=== PATIENT | female | born 1940 | race Caucasian/White ===

== ENCOUNTER → 2024-01-11 15:06 | Outpatient (REF) | payer OTHER, SELFPAY | LOC: WDC 15:06 | PROVIDERS: ATTENDING PHYSICIAN Registered Nurse | DX: Z12.31 Encounter for screening mammogram for malignant neoplasm of breast (principal) | CPT/HCPCS: 77063; 77067 ==

== ENCOUNTER → 2024-06-29 09:43 | Outpatient (REF) | payer OTHER, SELFPAY | LOC: WDC 09:43 | PROVIDERS: ATTENDING PHYSICIAN Registered Nurse | DX: N64.4 Mastodynia (principal) | CPT/HCPCS: 76642; 77061; 77065 ==

== ENCOUNTER 2024-08-20 13:48 | Emergency (ER) | payer OTHER, SELFPAY ==
[2024-08-20 13:54] VITALS: BP 182/103
--- NOTE | 2024-08-20 15:00 | ED.SKININJ ---
HPI-Injury
General
Chief Complaint: Skin Problem
Source: patient and family (daughter at bedside)
Exam Limitations: none
Time Seen by Provider: 08/20/24 14:03
Nursing documentation reviewed up to this point in time: agreed with
History of Present Illness-Injury
Initial Injury comments:
83 yo female from [place] presents with daughter stating a week ago pt had scattered 6 mm flat red spots over both arms. These subsided and 4 days ago red areas started to appear bilateral antecubital areas and anterior neck and lower half of face.
Pt states mildly itchy, not painful.
Daughter states pt's knees were itching badly last p.m. but today no symptoms.
Has a remote history of eczema and has seen Dr. Marie in past.
Denies fever/chills, feels well otherwise.
Past History
Past History
ED Past Medical History: HTN and NIDDM
ED Past Surgical History: Gynecological and Orthopedic
Social History
Tobacco: Non-smoker
Alcohol: None
Drug: None
Personal:
Living: skilled nursing
Employment: Retired
Family History
Family History: Hypertension
Review of Systems
Review of Systems
Allergies reviewed?: Yes
All Other Systems: ROS reviewed and negative except as documented in HPI and ROS
Constitutional: Denies fever, fatigue or chills
Respiratory: Denies trouble breathing
Cardiac: Denies chest pain
ABD/GI: Denies abdominal pain, nausea, vomiting, diarrhea, constipated or anorexia
: Denies dysuria or difficulty voiding
Musculoskeletal: Reports no symptoms
Skin: Reports itching and rash
Neurological: Reports no symptoms
Phy Exam
Physical Exam
Physical Exam:
GENERAL: No acute distress. A&Ox3.
CONSTITUTIONAL: Afebrile.
EYES: clear, conjunctivae normal
ENMT: moist mucus membranes, Pharynx nl
RESPIRATORY: Regular respirations, nonlabored, lungs clear.
CARDIOVASCULAR: Regular rate and rhythm, no murmurs, no rubs.
GI: Soft, nontender
MUSCULOSKELETAL: Moves with ease. Well perfused.
SKIN: Warm, dry, pink. Dry, thick, scaly, reddened skin bilateral antecubital areas, chin and lower cheeks. Mild redness anterior neck. The rest of the body is spared, no lesions/rash.
PSYCH: Normal mood and affect. Well kept, interactive and appropriate
NEUROLOGIC: Awake, alert and oriented. No focal neurological deficits
Course
Vital Signs
Initial and Last Documented VS:
Initial Vital Signs
Temp Pulse Resp BP Pulse Ox
98 F 82 18 182/103 98
08/20/24 13:54 08/20/24 13:54 08/20/24 13:54 08/20/24 13:54 08/20/24 13:54
Last Documented Vital Signs
Temp Pulse Resp BP Pulse Ox
98 F 77 18 155/97 95
08/20/24 13:54 08/20/24 15:05 08/20/24 15:05 08/20/24 15:05 08/20/24 15:05
MDM/Problems Addressed
Differential Diagnosis Includes:
eczema, psoriasis, lichen planus, contact dermatitis, cellulitis
MDM/Problems Addressed:
83 yo female from [place] presents with daughter stating a week ago pt had scattered 6 mm flat red spots over both arms. These subsided and 4 days ago red areas started to appear bilateral antecubital areas and anterior neck and lower half of face.
Pt states mildly itchy, not painful.
Daughter states pt's knees were itching badly last p.m. but today no symptoms.
Has a remote history of eczema and has seen Dr. Marie in past.
Denies fever/chills, feels well otherwise.
Afebrile, well appearing, joking, pleasant
No systemic signs of infection
Exam consistent with eczema. Areas are bright red on arms, darker red on face.
Will cover for early cellulitis with Keflex
Rx for steroid taper and Keflex given to her daughter
They will f/u with Dr. Marie
*Critical Care Note
Total Time (30-74mins, 75-104mins- exclusive of procedures): Not Applicable
ED Attending Note
-
Portions of this chart may have been created with voice recognition software.� Occasional wrong word or��sound alike� substitutions may have occurred due to the inherent limitations of voice recognition software.
Discharge Plan
Departure
Patient Disposition: Home (Routine Discharge)
Date of Disposition: 08/20/24
Time of Disposition: 15:00
Patient with high blood pressure during this ER visit?: No
Condition: Good
Discharge Problem:
Eczema of both upper extremities, Acute eczema, Eczema of face
Instructions: Eczema (atopic dermatitis)
Prescriptions:
New
prednisone 10 mg Tablet
See Rx Instructions .ROUTE .COMPLEX Qty: 30 0RF
Rx Instructions:
Take By Mouth:
40 mg daily x3 days, 30 mg daily x3 days,
20 mg daily x3 days, 10 mg daily x3 days.
cephalexin 500 mg capsule
500 mg PO QID 7 Days Qty: 28 0RF
No Action
atorvastatin 40 MG tablet
40 mg PO DAILY
metformin 500 MG tablet
500 mg PO .DAILY@1800
levothyroxine 75 MCG tablet
75 mcg PO DAILY
metoprolol succinate 50 MG tablet extended release 24 hr
50 mg PO DAILY
lisinopril 10 MG tablet
10 mg PO DAILY
cholecalciferol (vitamin D3) [Vitamin D3] 1,000 UNIT capsule
1,000 unit PO DAILY
acetaminophen 325 MG tablet
650 mg PO Q4HPRN PRN (Reason: pain) Qty: 0 0RF
aspirin 325 MG tablet,delayed release (DR/EC)
325 mg PO DAILY Qty: 0 0RF
Referrals:
Alisia Marie MD [Consulting Staff] - Next open appointment
Activity Restrictions/Additional Instructions:
As we discussed, this looks most like eczema.
Take the Prednisone and Keflex as orderd.
Call Dr. Marie and make next available appointement
Interventions
Interventions:
*Risk Screen - Suicide Last Done: 08/20/24 13:54
*General Assessment Last Done: 08/20/24 13:54
*Neglect/Abuse Screening Last Done: 08/20/24 13:54
ED- Fall Risk Assessment Last Done: 08/20/24 15:11
*ED COVID-19 Vaccine History Last Done: 08/20/24 15:11
*Nursing Disposition Last Done: 08/20/24 15:11
ED-Skin Assessment Last Done: 08/20/24 15:05
Discharge Date and Time
Discharge Date/Time: 08/20/24 15:19
Print Language: FAROESE
[2024-08-20 15:05] VITALS: BP 155/97
== END 2024-08-20 15:19 | disposition home or self-care (01) ==
LOC: EMR 13:48
PROVIDERS: EMERGENCY PHYSICIAN Student in an Organized Health Care Education/Training Program; FAMILY PHYSICIAN Registered Nurse
DX: L30.9 Dermatitis, unspecified (principal); I10 Essential (primary) hypertension; E11.9 Type 2 diabetes mellitus without complications
CPT/HCPCS: 99282

== ENCOUNTER 2024-08-26 07:35 | Emergency (ER) | payer OTHER, SELFPAY ==
[2024-08-26 07:38] VITALS: BP 202/85
--- NOTE | 2024-08-26 07:39 | ED.GENMED ---
History of Present Illness
General
Chief Complaint: Fall
Source: patient
Exam Limitations: none
Time Seen by Provider: 08/26/24 07:39
Nursing documentation reviewed up to this point in time: agreed with
History of Present Illness
History of Present Illness:
83 yr old female presents via EMS fro [facility] for evaluation of fall. Patient was found on the floor outside of her room. Pt was found sitting in the sofa when EMS arrived.
Pt is at baseline as per residential staff.
PT presents in a collar awake alert no acute distress mildly confused which is baseline for patient. Patient is not on blood thinners. Patient has no complaints.
Past History
Past History
ED Past Medical History: HTN and NIDDM
ED Past Surgical History: Gynecological and Orthopedic
Social History
Tobacco: Non-smoker
Alcohol: None
Drug: None
Personal:
Living: residential
Employment: Retired
Family History
Family History: Hypertension
Review of Systems
Review of Systems
Allergies reviewed?: Yes
Unable to obtain full review of systems at this time due to: dementia
Other source history: family and residential
All Other Systems: ROS reviewed and negative except as documented in HPI and ROS
Constitutional: Reports no symptoms
Respiratory: Reports no symptoms
ABD/GI: Reports no symptoms
Musculoskeletal: Reports no symptoms
Skin: Reports no symptoms
Neurological: Reports no symptoms
Psychiatric: Reports no symptoms
Phy Exam
General Physical Exam
General Presentation: no apparent distress
General age: appears stated age
General Skin: warm and dry
General Habitus: elderly
General Mental: confused
Cardiovascular Exam
Cardiovascular Exam: regular rate/rhythm, no murmur and normal peripheral pulses
Pulmonary Exam
Pulmonary Exam: lungs clear
Neurological Exam
Neurological Exam: alert and other (Oriented to name follows commands)
Musculoskeletal Exam
Musculoskeletal Exam: full ROM and other (Cervical collar in place)
Skin Exam
Skin Exam: normal color and warm/dry
Psychiatric Exam
Psychiatric Exam: normal mood/affect
Course
Orders/Labs/Results
Orders:
Orders
08/26/24 07:38
EKG [Electrocardiogram (*1)] Urgent
Reason for Study: QTc Monitoring
CT Cervical Spine W/o Iv Contr Urgent
Comment:
Reason For Exam: fall
CT Head W/o Iv Contrast Urgent
Comment:
Reason For Exam: fall
IV Insert/Care/Rem.- Treatment PRN
08/26/24 07:39
EKG- Treatment ONCE
08/26/24 07:44
Complete Blood Count/With Diff Urgent
Comprehensive Metabolic Panel Urgent
08/26/24 08:18
0.9% Sodium Chloride 500 ml [Nss] 500 ml IV BOLUS
Abnormal Lab Results
08/26/24
07:44
MPV 10.5 H fL
(7.4-10.4)
Absolute Neuts (auto) 7.7 H 10^3/uL
(1.4-6.5)
Neutrophils % 77.1 H %
(42.2-75.2)
Lymphocytes % 15.4 L %
(20.5-51.1)
BUN 29 H mg/dl
(7-17)
Creatinine 1.1 H mg/dL
(0.6-1.0)
Glucose 188 H mg/dl
(70-99)
Calcium 11.3 H mg/dl
(8.4-10.2)
08/26/24 07:44
08/26/24 07:44
Vital Signs
Initial and Last Documented VS:
Initial Vital Signs
Pulse Resp BP
67 18 202/85
08/26/24 07:38 08/26/24 07:38 08/26/24 07:38
Last Documented Vital Signs
Temp Pulse Resp BP Pulse Ox
97.6 F 59 15 169/78 97
08/26/24 07:40 08/26/24 09:30 08/26/24 09:30 08/26/24 09:00 08/26/24 09:30
MDM/Problems Addressed
MDM/Problems Addressed:
Patient is an 83-year-old female from [place] with history dementia brought for evaluation of fall. Patient was found outside of her room on the floor. She is not on blood thinners. She presents awake alert no acute distress confused however at
baseline as per family collar in place. No obvious head injury on exam CT head and cervical spine are negative. Patient is afebrile. Normal hemoglobin and white blood cell. Patient's creatinine minimally elevated to 1.1 given small amount of
fluids. Patient complains of mild headache will give Tylenol plan for discharge back to [place]. Family at bedside reports patient is at baseline they will drive patient back to facility.
Patient's heart rate has been in the 60s here in the ER initial EKG heart rate was 49 however has been in normal sinus rhythm otherwise here in the ER no complaints of chest pain.
*Critical Care Note
Total Time (30-74mins, 75-104mins- exclusive of procedures): Not Applicable
ED Attending Note
-
Portions of this chart may have been created with voice recognition software.� Occasional wrong word or��sound alike� substitutions may have occurred due to the inherent limitations of voice recognition software.
Discharge Plan
Departure
Patient Disposition: Fdc/SNF
Date of Disposition: 08/26/24
Time of Disposition: 09:30
Condition: Fair
Covid-19: Not Applicable
Discharge Problem:
Fall
Instructions: Preventing falls in adults, Preventing Falls ED
Prescriptions:
No Action
atorvastatin 40 MG tablet
40 mg PO DAILY
metformin 500 MG tablet
500 mg PO .DAILY@1800
levothyroxine 75 MCG tablet
75 mcg PO DAILY
metoprolol succinate 50 MG tablet extended release 24 hr
50 mg PO DAILY
lisinopril 10 MG tablet
10 mg PO DAILY
cholecalciferol (vitamin D3) [Vitamin D3] 1,000 UNIT capsule
1,000 unit PO DAILY
acetaminophen 325 MG tablet
650 mg PO Q4HPRN PRN (Reason: pain) Qty: 0 0RF
aspirin 325 MG tablet,delayed release (DR/EC)
325 mg PO DAILY Qty: 0 0RF
prednisone 10 mg Tablet
See Rx Instructions .ROUTE .COMPLEX Qty: 30 0RF
Rx Instructions:
Take By Mouth:
40 mg daily x3 days, 30 mg daily x3 days,
20 mg daily x3 days, 10 mg daily x3 days.
cephalexin 500 mg capsule
500 mg PO QID 7 Days Qty: 28 0RF
Referrals:
Ricardo Whitaker CRNP [Family Provider] -
Activity Restrictions/Additional Instructions:
Pt had a ct scan of head and cervical spine which were negative. Patient was found to be mildly dehydrated here in the ER and was given small amount of fluids. Patient should increase fluids.
Follow-up with family doctor as needed in the next several days. Return if any worsening of symptoms.
Interventions
Interventions:
*Risk Screen - Suicide Last Done: 08/26/24 07:40
*General Assessment Last Done: 08/26/24 07:40
*Neglect/Abuse Screening Last Done: 08/26/24 07:40
ED- Fall Risk Assessment Last Done: 08/26/24 07:40
*ED COVID-19 Vaccine History Last Done: 08/26/24 07:40
ED-Musculoskeletal Assessment Last Done: 08/26/24 07:40
ED- Neurological Assessment Last Done: 08/26/24 07:40
Discharge Date and Time
Print Language: SURINAMESE
[2024-08-26 07:40] VITALS: BP 202/85; BMI 27.1
[2024-08-26 07:57] LABS: % Basophils 0.3 % (0-2); % Eosinophils 0.3 % (0-6); % Immature Granulocytes 0.4 % (0-0.5); % Lymphocytes 15.4 % (20.5-51.1); % Monocytes 6.5 % (1.7-9.3); % Neutrophils 77.1 % (42.2-75.2); Absolute Lymphocytes 1.5 10^3/uL (1.2-3.4); Absolute Monocytes 0.6 10^3/uL (0.1-0.6); Absolute Neutrophils 7.7 10^3/uL (1.4-6.5); Hematocrit 40.6 % (37.0-47.0); Hemoglobin 13.9 g/dL (12.0-16.0); Mean Corp Hgb Conc. 34.2 g/dL (33.0-37.0); Mean Corpuscular Hgb 28.2 pg (27.0-31.0); Mean Corpuscular Volume 82.4 fL (81.0-99.0); Mean Platelet Volume 10.5 fL (7.4-10.4); Nucleated Red Blood Cells % 0 %; Platelet Count 312 10^3/uL (130-400); Red Blood Cell Count 4.93 10^6/uL (4.20-5.40); Red Cell Dist. Width 14.1 % (11.5-14.5); White Blood Cell Count 9.9 10^3/uL (4.8-10.8)
[2024-08-26 08:09] LABS: ALT (SGPT) 19 U/L (0-35); AST (SGOT) 19 U/L (14-36); Albumin 4.6 g/dl (3.5-5.0); Alkaline Phosphatase 113 U/L (38-126); Blood Urea Nitrogen 29 mg/dl (7-17); Calcium 11.3 mg/dl (8.4-10.2); Carbon Dioxide 25 mmol/L (22-30); Chloride 102 mmol/L (98-107); Estimated Creatinine Clearance 36 ml/min; Glucose 188 mg/dl (70-99); Sodium 141 mmol/L (135-145); Total Bilirubin 0.5 mg/dl (0.2-1.3); Total Protein 7.5 g/dl (6.3-8.2); eGFR 49.55
[2024-08-26 08:11] VITALS: BP 189/101
[2024-08-26] MEDS: NSS 500 IV (08:49)
[2024-08-26 08:50] VITALS: BP 158/82
[2024-08-26 09:00] VITALS: BP 169/78
== END 2024-08-26 09:56 ==
LOC: EMR 07:35
PROVIDERS: Nurse Practitioner; EMERGENCY PHYSICIAN Emergency Medicine; FAMILY PHYSICIAN Registered Nurse
DX: R51.9 Headache, unspecified (principal); W19.XXXA Unspecified fall, initial encounter; Y92.129 Unspecified place in nursing home as the place of occurrence of the external cause; F03.90 Unspecified dementia, unspecified severity, without behavioral disturbance, psychotic disturbance, mood disturbance, and anxiety; E11.9 Type 2 diabetes mellitus without complications; I10 Essential (primary) hypertension; I34.0 Nonrheumatic mitral (valve) insufficiency; E03.9 Hypothyroidism, unspecified; E78.00 Pure hypercholesterolemia, unspecified; Z79.82 Long term (current) use of aspirin; Z79.84 Long term (current) use of oral hypoglycemic drugs; Z88.0 Allergy status to penicillin
CPT/HCPCS: 99284; 70450; 72125; 80053; 85025; 93005

== ENCOUNTER 2024-09-10 05:36 | Emergency (ER) | payer OTHER, SELFPAY ==
[2024-09-10 05:45] VITALS: BP 142/71
--- NOTE | 2024-09-10 07:32 | ED.GENMED ---
History of Present Illness
General
Chief Complaint: Fall
Time Seen by Provider: 09/10/24 06:31
History of Present Illness
History of Present Illness:
83-year-old female with history of dementia presenting for unwitnessed fall. Patient arrives from nursing facility where staff reported that patient had allegedly fallen, concerned that she had struck a dresser. Patient is severely demented,
unable to add any additional history. Patient without any significant complaints.
Past History
Past History
ED Past Medical History: HTN and NIDDM
ED Past Surgical History: Gynecological and Orthopedic
Social History
Tobacco: Non-smoker
Alcohol: None
Drug: None
Personal:
Living: alf
Employment: Retired
Family History
Family History: Hypertension
Phy Exam
Physical Exam
Physical Exam:
General: Well-appearing, no clinical signs of dehydration, nontoxic and in no acute distress
HEENT: protecting airway, no signs of trauma
Neck: appears supple, no tenderness to cervical spine
CV: Normal heart rate, regular rhythm
Resp: No accessory muscle use, no increased work of breathing, lungs clear to auscultation bilaterally
Abd: Soft and non-distended, no tenderness to palpation
Extremities: No deformities, no swelling, no erythema
Neuro: alert, no focal neurologic deficit
: deferred
Rectal: deferred
Psych: Normal affect
Skin: Intact
Course
Orders/Labs/Results
Orders:
Orders
09/10/24 06:57
CT Cervical Spine W/o Iv Contr Urgent
Comment:
Reason For Exam: fall, unwitnessed
CT Head W/o Iv Contrast Urgent
Comment:
Reason For Exam: fall, unwitnessed, dementia
09/10/24 07:22
Lorazepam [Ativan] 1 mg IM NOW STA
Lorazepam [Ativan] 1 mg PO NOW STA
Vital Signs
Initial and Last Documented VS:
Initial Vital Signs
Temp Pulse Resp BP Pulse Ox
97.5 F 71 18 142/71 100
09/10/24 05:45 09/10/24 05:45 09/10/24 05:45 09/10/24 05:45 09/10/24 05:45
Last Documented Vital Signs
Temp Pulse Resp BP Pulse Ox
97.5 F 72 16 155/96 95
09/10/24 05:45 09/10/24 07:53 09/10/24 08:01 09/10/24 07:53 09/10/24 07:53
MDM/Problems Addressed
MDM/Problems Addressed:
83-year-old female with history of dementia presenting for unwitnessed fall. Vital signs are normal.
On exam patient is resting comfortably, no acute complaints. Patient is very demented, however no physical signs of trauma, answering questions appropriately. No signs of trauma to extremities. Given unwitnessed fall with report of possible head
injury, will obtain CT brain and C-spine imaging.
09:00 -patient CT is negative. Remains hemodynamically stable. Feel stable for discharge. Will provide transportation back to nursing facility. Return precautions discuss.
*Critical Care Note
Total Time (30-74mins, 75-104mins- exclusive of procedures): Not Applicable
ED Attending Note
-
Portions of this chart may have been created with voice recognition software.� Occasional wrong word or��sound alike� substitutions may have occurred due to the inherent limitations of voice recognition software.
Discharge Plan
Departure
Prescriptions:
No Action
atorvastatin 40 MG tablet
40 mg PO DAILY
metformin 500 MG tablet
500 mg PO .DAILY@1800
levothyroxine 75 MCG tablet
75 mcg PO DAILY
metoprolol succinate 50 MG tablet extended release 24 hr
50 mg PO DAILY
lisinopril 10 MG tablet
10 mg PO DAILY
cholecalciferol (vitamin D3) [Vitamin D3] 1,000 UNIT capsule
1,000 unit PO DAILY
acetaminophen 325 MG tablet
650 mg PO Q4HPRN PRN (Reason: pain) Qty: 0 0RF
aspirin 325 MG tablet,delayed release (DR/EC)
325 mg PO DAILY Qty: 0 0RF
prednisone 10 mg Tablet
See Rx Instructions .ROUTE .COMPLEX Qty: 30 0RF
Rx Instructions:
Take By Mouth:
40 mg daily x3 days, 30 mg daily x3 days,
20 mg daily x3 days, 10 mg daily x3 days.
cephalexin 500 mg capsule
500 mg PO QID 7 Days Qty: 28 0RF
Referrals:
Ibis Patino CRNP [Family Provider] -
Interventions
Interventions:
*Risk Screen - Suicide Last Done: 09/10/24 05:45
*General Assessment Last Done: 09/10/24 05:45
*Neglect/Abuse Screening Last Done: 09/10/24 05:45
ED- Fall Risk Assessment Last Done: 09/10/24 06:42
*ED COVID-19 Vaccine History Last Done: 09/10/24 07:41
ED-Musculoskeletal Assessment Last Done: 09/10/24 06:42
ED- Neurological Assessment Last Done: 09/10/24 06:42
ED-Skin Assessment Last Done: 09/10/24 06:42
Discharge Date and Time
Print Language: MALAY
[2024-09-10] MEDS: ATIVAN 1 MG IM (07:49)
[2024-09-10 07:53] VITALS: BP 155/96
--- NOTE | 2024-09-10 07:54 | EDRN ---
Pt was taken to CT scan and left the CT room, walking, stating she's afraid and doesn't want to be here. Pt is very paranoid. Pt's daughter Yani called several times, spoke to pt, was trying to ask patient to get the CT. After long conversations
trying to convince patient to get CT and that no one is trying to harm her pt had to be medicated with IM Ativan as ordered. Pt currently in bed, VS WNL, will reassess.
[2024-09-10 09:52] VITALS: BP 148/87
[2024-09-10 10:01] LABS: Urine Albumin Negative (Neg - Trace); Urine Bilirubin Negative (Negative); Urine Character Clear (Clear); Urine Color Yellow; Urine Glucose Negative (Negative); Urine Ketone Negative (Negative); Urine Leukocyte Trace (Negative); Urine Nitrite Negative (Negative); Urine Occult Blood Negative (Negative); Urine Urobilinogen Negative (Neg - 1+)
[2024-09-10 10:38] LABS: Urine Amorphous Seen; Urine Squamous Cell 8 /LPF (Few); Urine Urothelial Cell 7 /LPF (FEW)
[2024-09-10 10:41] LABS: Urine Red Blood Cell 0-2 /HPF (0-2)
== END 2024-09-10 10:16 | disposition home or self-care (01) ==
LOC: EMR 05:36
PROVIDERS: EMERGENCY PHYSICIAN Student in an Organized Health Care Education/Training Program; FAMILY PHYSICIAN Nurse Practitioner Gerontology
DX: Z04.3 Encounter for examination and observation following other accident (principal); F03.90 Unspecified dementia, unspecified severity, without behavioral disturbance, psychotic disturbance, mood disturbance, and anxiety; E11.9 Type 2 diabetes mellitus without complications; I10 Essential (primary) hypertension
CPT/HCPCS: 99284; 96372; 70450; 72125; 81003; 81015

== ENCOUNTER 2024-10-20 22:53 | Emergency (ER) | payer OTHER, SELFPAY ==
[2024-10-20 23:13] VITALS: BP 111/81
--- NOTE | 2024-10-21 01:25 | ED.GENMED ---
History of Present Illness
General
Chief Complaint: Change in Mental Status
Time Seen by Provider: 10/21/24 00:39
History of Present Illness
History of Present Illness:
84-year-old female with history of severe vascular dementia, diabetes, hyperlipidemia presenting to the emergency department for increased aggressive behavior at nursing facility. Patient with allegedly found on the ground. She was aggressive with
staff, required Ativan x 2. Patient was recently discharged from [facility] in [place] and brought to present nursing facility. Patient limited historian on arrival, demented. No additional history or symptoms obtained at
this time.
Past History
Past History
ED Past Medical History: HTN and NIDDM
ED Past Surgical History: Gynecological and Orthopedic
Social History
Tobacco: Non-smoker
Alcohol: None
Drug: None
Personal:
Living: custodial
Employment: Retired
Family History
Family History: Hypertension
Phy Exam
Physical Exam
Physical Exam:
General: Well-appearing, no clinical signs of dehydration, nontoxic and in no acute distress
HEENT: protecting airway
Neck: appears supple, no tenderness
CV: Normal heart rate, regular rhythm
Resp: No accessory muscle use, no increased work of breathing, lungs clear to auscultation bilaterally
Abd: Soft and non-distended, no tenderness to palpation
Extremities: No deformities, no swelling
Neuro: alert, disoriented
: deferred
Rectal: deferred
Psych: Normal affect
Skin: Intact
Course
Orders/Labs/Results
Orders:
Orders
10/21/24 00:57
CT Head W/o Iv Contrast Urgent
Comment:
Reason For Exam: unwitnessed fall
10/21/24 02:43
Complete Blood Count/With Diff Urgent
Comprehensive Metabolic Panel Urgent
10/21/24 04:51
Lorazepam [Ativan] 1 mg PO NOW STA
Abnormal Lab Results
10/21/24
02:43
RBC 3.62 L 10^6/uL
(4.20-5.40)
Hgb 10.5 L g/dL
(12.0-16.0)
Hct 32.0 L %
(37.0-47.0)
MCHC 32.8 L g/dL
(33.0-37.0)
RDW 15.6 H %
(11.5-14.5)
Abs Immat Gran (auto) 0.1 H 10^3/uL
(0-0.05)
Absolute Monos (auto) 1.0 H 10^3/uL
(0.1-0.6)
Immature Gran % 0.8 H %
(0-0.5)
Lymphocytes % 18.9 L %
(20.5-51.1)
Monocytes % 12.9 H %
(1.7-9.3)
Chloride 108 H mmol/L
(98-107)
BUN 36 H mg/dl
(7-17)
Creatinine 1.5 H mg/dL
(0.6-1.0)
Glucose 132 H mg/dl
(70-99)
Calcium 10.6 H mg/dl
(8.4-10.2)
AST 68 H U/L
(14-36)
ALT 62 H U/L
(0-35)
Alkaline Phosphatase 177 H U/L
(38-126)
10/21/24 02:43
10/21/24 02:43
Vital Signs
Initial and Last Documented VS:
Initial Vital Signs
Temp Pulse Resp BP Pulse Ox
97.9 F 81 20 111/81 100
10/20/24 23:13 10/20/24 23:13 10/20/24 23:13 10/20/24 23:13 10/20/24 23:13
Last Documented Vital Signs
Temp Pulse Resp BP Pulse Ox
97.9 F 80 19 111/81 98
10/20/24 23:13 10/20/24 23:13 10/20/24 23:13 10/20/24 23:13 10/20/24 23:13
MDM/Problems Addressed
MDM/Problems Addressed:
84-year-old female with history of severe vascular dementia presenting for increased aggressive behavior at nursing facility and possible fall. Vital signs are normal.
On exam, patient initially difficult to direct, however received Ativan prior to arrival. Patient soon became calm, now resting comfortably. Patient without any specific acute medical complaints. Suspect preceding symptoms from underlying known
severe dementia. Patient however was allegedly found on the ground. No signs of trauma. Will screen with laboratory analysis and CT brain imaging
04:00 -Labs relatively unremarkable. Mild AMANDA. CT brain unremarkable. Patient remains intermittently agitated from her dementia, will redosed with Ativan and plan for disposition back to nursing facility
05:50 -multiple attempts to contact nursing facility without success. Will plan for transportation back to custodial
*Critical Care Note
Total Time (30-74mins, 75-104mins- exclusive of procedures): Not Applicable
ED Attending Note
-
Portions of this chart may have been created with voice recognition software.� Occasional wrong word or��sound alike� substitutions may have occurred due to the inherent limitations of voice recognition software.
Discharge Plan
Departure
Prescriptions:
No Action
atorvastatin 40 MG tablet
40 mg PO DAILY
metformin 500 MG tablet
500 mg PO .DAILY@1800
levothyroxine 75 MCG tablet
75 mcg PO DAILY
metoprolol succinate 50 MG tablet extended release 24 hr
50 mg PO DAILY
lisinopril 10 MG tablet
10 mg PO DAILY
cholecalciferol (vitamin D3) [Vitamin D3] 1,000 UNIT capsule
1,000 unit PO DAILY
acetaminophen 325 MG tablet
650 mg PO Q4HPRN PRN (Reason: pain) Qty: 0 0RF
aspirin 325 MG tablet,delayed release (DR/EC)
325 mg PO DAILY Qty: 0 0RF
prednisone 10 mg Tablet
See Rx Instructions .ROUTE .COMPLEX Qty: 30 0RF
Rx Instructions:
Take By Mouth:
40 mg daily x3 days, 30 mg daily x3 days,
20 mg daily x3 days, 10 mg daily x3 days.
cephalexin 500 mg capsule
500 mg PO QID 7 Days Qty: 28 0RF
Referrals:
Shlomo Timmons MD [Family Provider] -
Interventions
Interventions:
*Risk Screen - Suicide Last Done: 10/20/24 23:13
*General Assessment Last Done: 10/20/24 23:13
*Neglect/Abuse Screening Last Done: 10/20/24 23:13
*ED COVID-19 Vaccine History Last Done: 10/20/24 23:39
ED-Psychological Assessment Last Done: 10/20/24 23:39
ED- Neurological Assessment Last Done: 10/20/24 23:39
ED Swallowing Screen Last Done: 10/20/24 23:39
Discharge Date and Time
Print Language: ARMENIAN
[2024-10-21 02:49] LABS: % Basophils 0.9 % (0-2); % Eosinophils 2.1 % (0-6); % Immature Granulocytes 0.8 % (0-0.5); % Lymphocytes 18.9 % (20.5-51.1); % Monocytes 12.9 % (1.7-9.3); % Neutrophils 64.4 % (42.2-75.2); Absolute Basophils 0.1 10^3/uL (0-0.2); Absolute Eosinophils 0.2 10^3/uL (0-0.7); Absolute Immature Granulocytes 0.1 10^3/uL (0-0.05); Absolute Lymphocytes 1.5 10^3/uL (1.2-3.4); Hemoglobin 10.5 g/dL (12.0-16.0); Mean Corp Hgb Conc. 32.8 g/dL (33.0-37.0); Mean Corpuscular Volume 88.4 fL (81.0-99.0); Mean Platelet Volume 8.8 fL (7.4-10.4); Nucleated Red Blood Cells % 0 %; Platelet Count 316 10^3/uL (130-400); Red Blood Cell Count 3.62 10^6/uL (4.20-5.40); Red Cell Dist. Width 15.6 % (11.5-14.5); White Blood Cell Count 7.8 10^3/uL (4.8-10.8)
[2024-10-21 03:02] LABS: ALT (SGPT) 62 U/L (0-35); AST (SGOT) 68 U/L (14-36); Albumin 3.7 g/dl (3.5-5.0); Alkaline Phosphatase 177 U/L (38-126); Blood Urea Nitrogen 36 mg/dl (7-17); Calcium 10.6 mg/dl (8.4-10.2); Carbon Dioxide 28 mmol/L (22-30); Chloride 108 mmol/L (98-107); Glucose 132 mg/dl (70-99); Potassium 4.3 mmol/L (3.5-5.1); Sodium 144 mmol/L (135-145); Total Protein 6.6 g/dl (6.3-8.2); eGFR 33.94
[2024-10-21] MEDS: ATIVAN 1 MG PO (04:56)
[2024-10-21 09:55] VITALS: BP 155/86
== END 2024-10-21 10:01 | disposition home or self-care (01) ==
LOC: EMR 22:53
PROVIDERS: EMERGENCY PHYSICIAN Student in an Organized Health Care Education/Training Program; FAMILY PHYSICIAN Family Medicine
DX: F01.511 Vascular dementia, unspecified severity, with agitation (principal); R45.1 Restlessness and agitation; W19.XXXA Unspecified fall, initial encounter; Y92.89 Other specified places as the place of occurrence of the external cause; N17.9 Acute kidney failure, unspecified; E11.9 Type 2 diabetes mellitus without complications; E78.5 Hyperlipidemia, unspecified; I10 Essential (primary) hypertension
CPT/HCPCS: 99284; 70450; 80053; 85025